=== PATIENT | female | born 1980 | race Caucasian/White ===

== ENCOUNTER → 2016-10-10 02:39 | Emergency (ER) | payer OTHER ==
[~2016-10-10 02:39] MED LIST: ACETAMINOPHEN PO; ACYCLOVIR400 MG PO; BUSPAR PO; CELEXA PO; DEPAKOTE ER PO; DEPAKOTE PO; FIORICET 50-321 EACH PO; FLEXERIL10 MG PO; FLONASE16 GM; KEFLEX PO; KETOPROFEN PO; LEVAQUIN PO; NAPROSYN500 MG PO; PRILOSEC20 M1 PO; PYRIDIUM100 MG PO; REMERON PO; SOMA PO; ULTRAM PO; VISTARIL PO; ZOFRAN ODT4 MG PO
== END | disposition left against medical advice (07) ==
LOC: CED 02:39
DX: Z53.21 Procedure and treatment not carried out due to patient leaving prior to being seen by health care provider (principal)